=== PATIENT | female | born 1950 | race Caucasian/White ===

== ENCOUNTER 2017-06-21 10:56 | Inpatient (IN) | payer MEDICARE, OTHER ==
[2017-06-21] VITALS (11 sets, daily range): BP systolic 109–142; BP diastolic 67–81; PULSE 69–78; RESP 16–18; TEMP 98–98.5; O2SAT 94–100
[~2017-06-21 10:56] MED LIST: BENZ1TAB PO; CALC500 PO; CLON.5 PO; GEOD80CA PO; LEVA750T PO; LEVO125T3 PO; MELO15 PO; MULT-65 PO; PANT20 PO; PRAV40TA PO; VITA400C36 PO
[2017-06-21] MEDS ORDERED: SODIUM CHLORIDE 0.9% FLUSH 10 ML FLUSH IVF PRN (11:15)
[2017-06-21 11:39] LABS: AUTOMATED NEUTROPHIL # 6.6 TH/MM3 (1.8-7.7); BASOPHIL % 0.2 % (0.0-2.0); EOSINOPHIL # 0.1 TH/MM3 (0-0.4); HEMATOCRIT 37.2 % (35.0-46.0); HEMOGLOBIN 12.4 GM/DL (11.6-15.3); LYMPH % 11.7 % (9.0-44.0); LYMPHOCYTE # 0.9 TH/MM3 (1.0-4.8); MEAN CELL VOLUME 86.1 FL (80.0-100.0); MEAN CORPUSCULAR HEMOGLOBIN 28.9 PG (27.0-34.0); MEAN CORPUSCULAR HGB CONC 33.5 % (32.0-36.0); MEAN PLATELET VOLUME 7.6 FL (7.0-11.0); MONO % 3.2 % (0.0-8.0); MONOCYTE # 0.3 TH/MM3 (0-0.9); NEUT % 83.9 % (16.0-70.0); PLATELET COUNT 212 TH/MM3 (150-450); RED BLOOD COUNT 4.31 MIL/MM3 (4.00-5.30); WHITE BLOOD COUNT 7.9 TH/MM3 (4.0-11.0)
[2017-06-21 11:50] LABS: BICARBONATE 29.9 MEQ/L (21.0-32.0); CALCIUM 8.5 MG/DL (8.5-10.1)
[2017-06-21 11:52] LABS: INTERNATIONAL NORMALIZED RATIO 1.1 RATIO; PROTHROMBIN TIME - PATIENT 10.9 SEC (9.8-11.6)
[2017-06-21 11:54] LABS: CREATININE 0.68 MG/DL (0.50-1.00)
--- NOTE | 2017-06-21 12:02 | PD ---
HPI Chief Complaint: Fall Time Seen by Provider: 11:04 Travel History International Travel<30 days: No Contact w/Intl Traveler<30days: No Traveled to known affect area: No History of Present Illness HPI 67-year-old female states she had a trip and fall and hit the back of her head. After this she had an episode of nonbloody emesis. She states she also hurts to her left upper hip after the fall. She denies any other concurrent complaints. She states the main area that is bothering her is her head. She states she doesn't take blood thinners but she is unsure and is an overall poor historian. History is supplemented by records that came with patient. [facility] Past Medical History Arthritis: No Asthma: No Autoimmune Disease: No Anxiety: Yes Depression: Yes Heart Rhythm Problems: No Cancer: No Cardiovascular Problems: No High Cholesterol: Yes Chest Pain: No Congestive Heart Failure: No COPD: No Cerebrovascular Accident: No Diabetes: No Diminished Hearing: No Endocrine: Yes Gastrointestinal Disorders: Yes GERD: No Genitourinary: Yes Hiatal Hernia: No Hypertension: Yes Immune Disorder: No Kidney Stones: No Musculoskeletal: No Neurologic: No Parkinson's Disease: Yes Reproductive: No Respiratory: No Immunizations Current: Yes Migraines: No Renal Failure: No Schizophrenia: Yes Seizures: No Sleep Apnea: No Thyroid Disease: Yes (HYPO) Ulcer: No : 0 Tubal Ligation: Yes Past Surgical History Abdominal Surgery: Yes (cholecystectomy) AICD: No Arteriovenous Shunt: No Cardiac Surgery: No Cholecystectomy: Yes Gynecologic Surgery: Yes (HYSTERECTOMY & tubal ligation) Hysterectomy: Yes (right side ovaries removed) Insulin Pump: No Joint Replacement: No Pacemaker: No Tonsillectomy: Yes Other Surgery: Yes Social History Alcohol Use: No Tobacco Use: Yes (5 cigarettes daily) Substance Use: No Allergies-Medications (Allergen,Severity, Reaction): Coded Allergies: No Known Allergies (Verified , 04/01/16) Reported Meds & Prescriptions Reported Meds & Active Scripts Active Levaquin (Levofloxacin) 750 Mg Tab 750 Mg PO DAILY 4 Days Reported Klonopin (Clonazepam) 0.5 Mg Tab 0.5 Mg PO TID Protonix (Pantoprazole Sodium) 20 Mg Tab 20 Mg PO DAILY Mobic 15 Mg Tab (Meloxicam) 15 Mg Tab 15 Mg PO DAILY Pravachol 40 Mg Tab 1 Tab PO HS Vitamin E 400 Unit Tab 800 U PO DAILY Geodon (Ziprasidone) 80 Mg Cap 80 Mg PO HS Oscal 500 (Calcium Carbonate) 500 Mg Tab 500 Mg PO BID Klonopin (Clonazepam) 0.5 Mg Tab 0.5 Mg PO DAILY Levothyroxine 125 mcg (Levothyroxine Sodium) 125 Mcg Tab 1 Tab PO DAILY Multi-Vitamin Daily (Multivitamins) Daily Tab 1 Tab PO DAILY Benztropine Mesylate 1 Mg Tab 2 Mg PO BID Review of Systems Except as stated in HPI: all other systems reviewed are Neg Physical Exam Narrative GENERAL: 67-year-old female in no apparent distress SKIN: Focused skin assessment warm/dry. HEAD: Normocephalic. EYES: Pupils equal and round. No scleral icterus. No injection or drainage. ENT: No nasal bleeding or discharge. Mucous membranes pink and moist. NECK: Trachea midline. No JVD. No tenderness in midline over cervical spine with palpation and range of motion CARDIOVASCULAR: Regular rate and rhythm. RESPIRATORY: No accessory muscle use. Clear to auscultation. Breath sounds equal bilaterally. GASTROINTESTINAL: Abdomen soft, non-tender, nondistended. MUSCULOSKELETAL: No obvious deformities. No clubbing. No cyanosis. Pain with palpation of left upper lateral hip, no pain with other joints , neurovascularly intact, no lacerations over, compartments soft. NEUROLOGICAL: Awake. Motor grossly within normal limits. Normal speech. Data Data Last Documented VS Vital Signs Date Time Temp Pulse Resp B/P (MAP) Pulse Ox O2 Delivery O2 Flow Rate FiO2 06/21/17 11:10 94 Room Air 06/21/17 11:00 98.5 73 18 140/81 (100) Orders Orders Basic Metabolic Panel (Bmp) (06/21/17 11:11) Complete Blood Count With Diff (06/21/17 11:11) Prothrombin Time / Inr (Pt) (06/21/17 11:11) Act Partial Throm Time (Ptt) (06/21/17 11:11) Ct Brain W/O Iv Contrast(Rout) (06/21/17 11:11) Iv Access Insert/Monitor (06/21/17 11:11) Ecg Monitoring (06/21/17 11:11) Oximetry (06/21/17 11:11) Sodium Chloride 0.9% Flush (Ns Flush) (06/21/17 11:15) Hip, Uni(Ap&Lat) W Ap Pelvis (06/21/17 ) Admit Order (Ed Use Only) (06/21/17 13:20) Labs Laboratory Tests Test 06/21/17 11:35 White Blood Count 7.9 TH/MM3 Red Blood Count 4.31 MIL/MM3 Hemoglobin 12.4 GM/DL Hematocrit 37.2 % Mean Corpuscular Volume 86.1 FL Mean Corpuscular Hemoglobin 28.9 PG Mean Corpuscular Hemoglobin Concent 33.5 % Red Cell Distribution Width 13.0 % Platelet Count 212 TH/MM3 Mean Platelet Volume 7.6 FL Neutrophils (%) (Auto) 83.9 % Lymphocytes (%) (Auto) 11.7 % Monocytes (%) (Auto) 3.2 % Eosinophils (%) (Auto) 1.0 % Basophils (%) (Auto) 0.2 % Neutrophils # (Auto) 6.6 TH/MM3 Lymphocytes # (Auto) 0.9 TH/MM3 Monocytes # (Auto) 0.3 TH/MM3 Eosinophils # (Auto) 0.1 TH/MM3 Basophils # (Auto) 0.0 TH/MM3 CBC Comment DIFF FINAL Differential Comment Prothrombin Time 10.9 SEC Prothromb Time International Ratio 1.1 RATIO Activated Partial Thromboplast Time 23.7 SEC Blood Urea Nitrogen 18 MG/DL Creatinine 0.68 MG/DL Random Glucose 87 MG/DL Calcium Level 8.5 MG/DL Sodium Level 136 MEQ/L Potassium Level 4.1 MEQ/L Chloride Level 101 MEQ/L Carbon Dioxide Level 29.9 MEQ/L Anion Gap 5 MEQ/L Estimat Glomerular Filtration Rate 86 ML/MIN [facility] Medical Decision Making Medical Screen Exam Complete: Yes Emergency Medical Condition: Yes Medical Record Reviewed: Yes (past history confirmed) Interpretation(s) CBC & BMP Diagram 06/21/17 11:35 Calcium Level 8.5 Last [address] 06/21/17 1111 Signed Impressions: Service Date/Time: Wednesday, June 21, 2017 11:51 - CONCLUSION: 1. High density material, likely representing a small amount of subarachnoid blood products, in the left sylvian fissure. 2. Left posterior lateral scalp soft tissue swelling. No fracture is identified. Jack Camacho MD Hip and Pelvis X-Ray 06/21/17 0000 Signed Impressions: Service Date/Time: Wednesday, June 21, 2017 11:22 - CONCLUSION: 1. Mild degenerative change at the left hip. No acute findings. Dexter Varela MD Differential Diagnosis Fracture, bleed, concussion Narrative Course Will check blood work, trauma imaging and reevaluate CT brain shows possible traumatic subarachnoid hemorrhage. We'll discuss with neurosurgery Patient to be admitted to [facility] ICU for further care. Vitals are stable Physician Communication Physician Communication dr la states to admit to critical care and if they want to consult him to send to [facility], no additional medications or recommendations at this time Dr. Nixon states to admit to Dr. Mojica at the main Diagnosis Primary Impression: Traumatic subarachnoid hemorrhage Qualified Codes: S06.6X0A - Traumatic subarachnoid hemorrhage without loss of consciousness, initial encounter Additional Impression: Fall Qualified Codes: W19.XXXA - Unspecified fall, initial encounter Admitting Information Admitting Physician Requests: Admit Nataliya Valladares MD Jun 21, 2017 12:02
--- NOTE | 2017-06-21 12:09 | RADRPT ---
EXAM DATE/TIME: 06/21/2017 11:22 [facility] COMPARISON: No previous studies available for comparison. INDICATIONS : Left hip pain post fall MEDICAL HISTORY : Parkinsons Disease SURGICAL HISTORY : Cholecystectomy. Hysterectomy.Head trauma ENCOUNTER: Initial ACUITY: 1 day PAIN SCORE: 6/10 LOCATION: Left posterior hip FINDINGS: Examination of the left hip was performed with AP Pelvis. The primary and secondary trabecular patte rn of the femoral neck is intact. The hip joint is of normal width without significant sclerosis or bony hypertrophy. The acetabulum is grossly intact. CONCLUSION: 1. Mild degenerative change at the left hip. No acute findings. Dexter Varela MD on June 21, 2017 at 12:06 Board Certified Radiologist. This report was verified electronically.
--- NOTE | 2017-06-21 12:22 | RADRPT ---
EXAM DATE/TIME: 06/21/2017 11:51 [facility] COMPARISON: CT BRAIN W/O CONTRAST, April 01, 2016, 22:01. INDICATIONS : Trauma. Fall. RADIATION DOSE: 64.49 CTDIvol (mGy) MEDICAL HISTORY : Parkinson's. Hypertension. Schizophrenia. SURGICAL HISTORY : Hysterectomy. Tubal ligation.Cholecystectomy. ENCOUNTER: Initial ACUITY: 1 day PAIN SCALE: 5/10 LOCATION: cranial TECHNIQUE: Multiple contiguous axial images were obtained of the head. Using automated exposure control and adj ustment of the mA and/or kV according to patient size, radiation dose was kept as low as reasonably a chievable to obtain optimal diagnostic quality images. DICOM format image data is available electro nically for review and comparison. FINDINGS: CEREBRUM: There is mild cerebral atrophy. Ventricles are normal in size. Portions of the frontal aspect of the cerebrum are obscured secondary to beam hardening artifact. There is high density material along the left sylvian fissure. No evidence of midline shift, mass lesion, or acute infarction. No extra-axia l fluid collections are seen. POSTERIOR FOSSA: The cerebellum and brainstem are intact. The 4th ventricle is midline. The cerebellopontine angle i s unremarkable. EXTRACRANIAL: There is left posterior lateral scalp soft tissue swelling. SKULL: Right frontal metallic device remains present and causes severe beam hardening artifact. CONCLUSION: 1. High density material, likely representing a small amount of subarachnoid blood products, in the l eft sylvian fissure. 2. Left posterior lateral scalp soft tissue swelling. No fracture is identified. Jack Camacho MD on June 21, 2017 at 12:18 Board Certified Radiologist. This report was verified electronically.
[2017-06-21] MEDS ORDERED: OMEP20TA93 PO (13:43)
[2017-06-21] MEDS ORDERED: POLY99.0 EACH EYE (13:43)
[2017-06-21] MEDS ORDERED: ASPI1TAB57 PO (13:43)
[2017-06-21] MEDS ORDERED: SUPETAB PO (13:43)
[2017-06-21] MEDS ORDERED: LEVO.1 PO (13:43)
[2017-06-21] MEDS ORDERED: MELO15TA20 PO (13:43)
[2017-06-21] MEDS ORDERED: UMEC1AER INH (13:43)
[2017-06-21] MEDS ORDERED: CLON0.5T PO (13:43)
[2017-06-21] MEDS ORDERED: DIVA250ER PO (13:43)
[2017-06-21] MEDS ORDERED: ZIPR20 PO (13:43)
[2017-06-21] MEDS ORDERED: LIPI10TA PO (13:43)
[2017-06-21] MEDS ORDERED: MAGNESIUM SULFATE INJ 2 GM in SODIUM CHLORIDE 0.9% INJ 96 ML IV PRN (14:00)
[2017-06-21] MEDS ORDERED: BISACODYL 10 MG SUPP RECTAL PRN (14:00)
[2017-06-21] MEDS ORDERED: MAGNESIUM SULFATE INJ 4 GM in SODIUM CHLORIDE 0.9% INJ 92 ML IV PRN (14:00)
[2017-06-21] MEDS ORDERED: POTASSIUM CHLORIDE 25 MEQ EFFERVESCENT TAB PO PRN (14:00)
[2017-06-21] MEDS ORDERED: LACTULOSE SYRUP 20 GM/30 ML CUP PO PRN (14:00)
[2017-06-21] MEDS ORDERED: POTASSIUM CHLOR 20 MEQ PREMIX 100 ML IV PRN ×2 (14:00)
[2017-06-21] MEDS ORDERED: POTASSIUM CHLOR 40 MEQ PREMIX 100 ML IV PRN ×2 (14:00)
[2017-06-21] MEDS ORDERED: MAGNESIUM OXIDE 400 MG TAB PO PRN (14:00)
[2017-06-21] MEDS ORDERED: POTASSIUM PHOSPHATE MONOBASIC 500 MG TAB PO PRN (14:00)
[2017-06-21] MEDS ORDERED: SENNOSIDES 8.6 MG TAB PO PRN (14:00)
[2017-06-21] MEDS ORDERED: RESP: ALBUTEROL 2.5 MG/IPRATROPIUM 0.5 MG NEB (PRN) INH (14:00)
[2017-06-21] MEDS ORDERED: SODIUM PHOSPHATE INJ 30 MMOL in SODIUM CHLOR 0.9% 250 ML INJ 240 ML IV PRN (14:00)
[2017-06-21] MEDS ORDERED: POTASSIUM PHOSPHATE MONOBASIC 500 MG TAB PO/TUBE PRN (14:00)
[2017-06-21] MEDS ORDERED: MISCELLANEOUS NURSING INFORMATION XX SCH (14:00)
[2017-06-21] MEDS ORDERED: POTASSIUM PHOSPHATE INJ 30 MMOL in SODIUM CHLOR 0.9% 250 ML INJ 250 ML IV PRN (14:00)
[2017-06-21] MEDS ORDERED: MAGNESIUM HYDROXIDE SUSP 30 ML CUP PO PRN (14:00)
[2017-06-21] MEDS ORDERED: CHLORHEXIDINE GLUCONATE 2 % 1 PACK (2 CLOTHS) TOP PRN (14:00)
[2017-06-21] MEDS ORDERED: ONDANSETRON HCL 4 MG/2 ML VIAL IV PUSH PRN (14:00)
[2017-06-21] MEDS: SODIUM CHLOR 0.9% 1000 ML INJ 1,000 ML IV SCH (15:07)
[2017-06-21] MEDS: RESP: ALBUTEROL 2.5 MG/IPRATROPIUM 0.5 MG NEB (SCH) INH ×2 (15:09→23:56)
--- NOTE | 2017-06-21 16:54 | PD.CONS ---
HPI Consult Requested By Primary Care Physician Unknown History of Present Illness This is a 67-year-old female had a trip and fall and hit the back of her head. No LOC. No seizure activity. No tongue bitting. No incontinence of stool or urine. After tfalling she had an episode of emesis. She states she also hurts to her left upper hip after the fall. She denies any other complaints. She states the main area that is bothering her is her head. She states she doesn't take blood thinners but she is unsure and is an overall poor historian. She is mostly worried about losing her vision because she saw on TV that the vision center of the brain is in the back of the head. Denies focal weakness. Denieas focal sensory lkoss. No loss of vision or hearing loss. No incontinence of sphincters. The CT of the head shows traumatic subarachnoid bleed. Neurosurgical consultation requested Review of Systems Constitutional: COMPLAINS OF: Dizziness, DENIES: Diaphoretic episodes, Fatigue , Fever, Weight gain, Weight loss, Chills, Change in appetite, Night Sweats Endocrine: DENIES: Abnorml menstrual pattern, Heat/cold intolerance, Polydipsia , Polyuria, Polyphagia Eyes: DENIES: Blurred vision, Diplopia, Eye inflammation, Eye pain, Vision loss , Photosensitivity, Double Vision Ears, nose, mouth, throat: DENIES: Tinnitus, Hearing loss, Vertigo, Nasal discharge, Oral lesions, Throat pain, Hoarseness, Ear Pain, Running Nose, Epistaxis, Sinus Pain, Toothache, Odynophagia Respiratory: DENIES: Apneas, Cough, Snoring, Wheezing, Hemoptysis, Sputum production, Shortness of breath Cardiovascular: DENIES: Chest pain, Palpitations, Syncope, Dyspnea on Exertion , PND, Lower Extremity Edema, Orthopnea, Claudication Gastrointestinal: COMPLAINS OF: Nausea, Vomiting, DENIES: Abdominal pain, Black stools, Bloody stools, Constipation, Diarrhea, Difficulty Swallowing, Anorexia Genitourinary: DENIES: Abnormal vaginal bleeding, Dysmenorrhea, Dyspareunia, Sexual dysfunction, Urinary frequency, Urinary incontinence, Urgency, Hematuria , Dysuria, Nocturia, Vaginal discharge Musculoskeletal: DENIES: Joint pain, Muscle aches, Stiffness, Joint Swelling, Back pain, Neck pain Integumentary: DENIES: Abnormal pigmentation, Pruritus, Rash, Nail changes, Breast masses, Breast skin changes, Nipple discharge Hematologic/lymphatic: DENIES: Bruising, Lymphadenopathy Immunologic/allergic: DENIES: Eczema, Urticaria Neurologic: COMPLAINS OF: Headache, DENIES: Abnormal gait, Localized weakness, Paresthesias, Seizures, Speech Problems, Tremor, Poor Balance Psychiatric: DENIES: Anxiety, Confusion, Mood changes, Depression, Hallucinations, Agitation, Suicidal Ideation, Homicidal Ideation, Delusions Past Family Social History Allergies: Coded Allergies: No Known Allergies (Verified Allergy, Unknown, 06/21/17) Past Medical History Paranoid schizophrenia Hypothyroidism Dyslipidemia GERD Past Surgical History None Reported Medications Synthroid (Levothyroxine Sodium) 100 Mcg Tab 100 Mcg PO DAILY Omeprazole 20 Mg Tab 20 Mg PO DAILY Meloxicam 15 Mg Tab 15 Mg PO DAILY Lipitor (Atorvastatin Calcium) 10 Mg Tab 10 Mg PO HS Geodon (Ziprasidone) 20 Mg Cap 20 Mg PO DAILY Depakote ER (Divalproex Sodium) 250 Mg Nahed 250 Mg PO BID Clonazepam 0.5 Mg Tab 0.5 Mg PO BID Super Calcium 600+D 400 (Calcium Carbonate-Vitamin D) 600-400 Mg-Unit Tab 1 Tab PO BID Aspirin 81 (Aspirin) 81 Mg Tabdr 81 Mg PO DAILY Artificial Tears Opth Drops (Polyvinyl Alcohol) 1.4% Soln 1-2 Drop EACH EYE PRN PRN Anoro Ellipta Inh (Umeclidinium/Vilanterol) 62.5-25 Mcg/Act Aero 1 Puff INH DAILY Klonopin (Clonazepam) 0.5 Mg Tab 0.5 Mg PO TID Active Ordered Medications Current Medications Sodium Chloride (NS Flush) 2 ml UNSCH PRN IVF FLUSH AFTER USING IV ACCESS; Start 06/21/17 at 11:15; Stop 06/21/17 at 14:31; Status DC Atorvastatin Calcium (Lipitor) 10 mg HS PO Last administered on 06/21/17at 20:51 ; Start 06/21/17 at 21:00 Clonazepam (KlonoPIN) 0.5 mg TID PO Last administered on 06/21/17at 18:17; Start 06/21/17 at 18:00 Divalproex Sodium (Depakote Er) 250 mg BID PO Last administered on 06/21/17at 20 :50; Start 06/21/17 at 21:00 Levothyroxine Sodium (Synthroid) 100 mcg DAILY@0600 PO ; Start 06/22/17 at 06:00 Ziprasidone (Geodon) 20 mg DAILY PO ; Start 06/22/17 at 09:00 Sodium Chloride 1,000 ml @ 84 mls/hr [id number] IV Last administered on at 01:30; Start 06/21/17 at 13:56 Acetaminophen (Tylenol) 650 mg Q6H PRN PO PAIN 1-5 AND/OR FEVER >101F Last administered on 06/22/17at 00:00; Start 06/21/17 at 14:00 Morphine Sulfate (Morphine Inj) 2 mg Q2H PRN IV PUSH PAIN SCALE 6 TO 10 Last administered on 06/22/17at 03:08; Start 06/21/17 at 14:00 Famotidine (Pepcid) 20 mg Q12HR PO Last administered on 06/21/17at 20:51; Start 06/21/17 at 21:00 Ondansetron HCl (Zofran Inj) 4 mg Q6H PRN IV PUSH NAUSEA OR VOMITING; Start at 14:00 Albuterol/ Ipratropium (Duoneb Neb) 1 ampule Q6HR NEB INH Last administered on 06/21/17at 23:56; Start 06/21/17 at 16:00 Albuterol/ Ipratropium (Duoneb Neb) 1 ampule Q2HR NEB PRN INH WHEEZING; Start 06/21/17 at 14:00 Miscellaneous Information 1 [id number] Last administered on 06/21/17at 20:52; Start 06/21/17 at 14:00 Chlorhexidine Gluconate (Chlorhexidine 2% Cloth) 3 pack Taper DAILY@04 TOP ; Start 06/22/17 at 04:00; Stop 06/18/18 at 03:59 Chlorhexidine Gluconate (Chlorhexidine 2% Cloth) 3 pack UNSCH PRN TOP HYGIENIC CARE; Start 06/21/17 at 14:00 Senna/Docusate Sodium (Pat-Colace) 1 tab BID PO ; Start 06/21/17 at 21:00 Magnesium Hydroxide (Milk Of Magnesia Liq) 30 ml Q12H PRN PO Mild constipation ; Start 06/21/17 at 14:00 Sennosides (Senokot) 17.2 mg Q12H PRN PO Moderate constipation; Start 06/21/17 at 14:00 Bisacodyl (Dulcolax Supp) 10 mg DAILY PRN RECTAL SEVERE CONSITIPATION; Start at 14:00 Lactulose (Lactulose Liq) 30 ml DAILY PRN PO SEVERE CONSITIPATION; Start at 14:00 Potassium Chloride 100 ml @ 50 mls/hr Q2H PRN IV For Potassium 2.8 - 3.2 mEq/L ; Start 06/21/17 at 14:00 Potassium Chloride 100 ml @ 50 mls/hr Q2H PRN IV For Potassium 2.8 - 3.2 mEq/L ; Start 06/21/17 at 14:00 Potassium Bicarb/ Potassium Chloride (K-Lyte Cl Eff) 50 meq UNSCH PRN PO For Potassium 3.3 - 3.5 mEq/L; Start 06/21/17 at 14:00 Potassium Chloride 100 ml @ 25 mls/hr UNSCH PRN IV For Potassium 3.3 - 3.5 mEq /L; Start 06/21/17 at 14:00 Potassium Chloride 100 ml @ 50 mls/hr Q2H PRN IV For Potassium 3.3 - 3.5 mEq/L ; Start 06/21/17 at 14:00 Magnesium Sulfate 4 gm/Sodium Chloride 100 ml @ 50 mls/hr UNSCH PRN IV For Magnesium 0.9 - 1.1 mg/dL; Start 06/21/17 at 14:00 Magnesium Oxide (Mag-Ox) 800 mg UNSCH PRN PO For Magnesium 1.2 - 1.6 mg/dL; Start 06/21/17 at 14:00 Magnesium Sulfate 2 gm/Sodium Chloride 100 ml @ 50 mls/hr UNSCH PRN IV For Magnesium 1.2 - 1.6 mg/dL; Start 06/21/17 at 14:00 Potassium Phosphate (K-Phos) 2,000 mg Q4H PRN PO For Phosphorus < 2.5 mg/dL; Start 06/21/17 at 14:00 Sodium Phosphate 30 mmol/Sodium Chloride 250 ml @ 42 mls/hr UNSCH PRN IV For Phosphorus < 2.5 mg/dL; Start 06/21/17 at 14:00 Potassium Phosphate (K-Phos) 2,000 mg UNSCH PRN PO/TUBE SEE LABEL COMMENTS; Start 06/21/17 at 14:00 Potassium Phosphate 30 mmol/ Sodium Chloride 260 ml @ 42 mls/hr UNSCH PRN IV SEE LABEL COMMENTS; Start 06/21/17 at 14:00 Clonazepam (KlonoPIN) 0.5 mg BID PO ; Start 06/22/17 at 09:00 Pantoprazole Sodium (Protonix) 20 mg DAILY PO ; Start 06/22/17 at 09:00 Family History Her family history was reviewed and was non contributory to her fall abd tis admission Social History Denies tobbacco, alcohol or illicit drug abuse Physical Exam Vital Signs Vital Signs Date Time Temp Pulse Resp B/P (MAP) Pulse Ox O2 Delivery O2 Flow Rate FiO2 06/21/17 15:10 72 16 109/76 (87) 97 Nasal Cannula 2.00 06/21/17 15:04 100 Nasal Cannula 1.00 06/21/17 15:03 98 Nasal Cannula 2.00 06/21/17 13:59 73 17 114/81 (92) 95 Room Air 06/21/17 13:00 78 18 117/77 (90) 94 Room Air 06/21/17 11:10 94 Room Air 06/21/17 11:10 95 Room Air 06/21/17 11:00 98.5 73 18 140/81 (100) 94 Physical Exam The patient is alert and oriented to person, place, and time with normal speech. Cranial Nerves: Pupils are round, reactive to light. Extraocular movements are intact without ptosis. Hearing is normal bilaterally. Voice is normal. Tongue protrudes midline and moves symmetrically. Reflexes: Biceps, patellar, and Achilles are 2/4 bilaterally. No clonus. Sensation: Sensation is intact bilaterally to pain and light touch. Two-point discrimination is intact. Motor: Good muscle tone. Strength is 5/5 bilaterally. Cerebellar: [id number] and [id number] test normal bilaterally. SKIN: Warm and dry. HEAD: Normocephalic. EYES: No scleral icterus. No injection or drainage. NECK: Supple, trachea midline. No JVD or lymphadenopathy. CARDIOVASCULAR: Regular rate and rhythm without murmurs, gallops, or rubs. RESPIRATORY: Breath sounds equal bilaterally. No accessory muscle use. GASTROINTESTINAL: Abdomen soft, non-tender, nondistended. MUSCULOSKELETAL: No cyanosis, or edema. BACK: Nontender without obvious deformity. NEURO EXAM: GCS: 15 Laboratory Laboratory Tests Test 06/21/17 11:35 White Blood Count 7.9 Red Blood Count 4.31 Hemoglobin 12.4 Hematocrit 37.2 Mean Corpuscular Volume 86.1 Mean Corpuscular Hemoglobin 28.9 Mean Corpuscular Hemoglobin Concent 33.5 Red Cell Distribution Width 13.0 Platelet Count 212 Mean Platelet Volume 7.6 Neutrophils (%) (Auto) 83.9 Lymphocytes (%) (Auto) 11.7 Monocytes (%) (Auto) 3.2 Eosinophils (%) (Auto) 1.0 Basophils (%) (Auto) 0.2 Neutrophils # (Auto) 6.6 Lymphocytes # (Auto) 0.9 Monocytes # (Auto) 0.3 Eosinophils # (Auto) 0.1 Basophils # (Auto) 0.0 CBC Comment DIFF FINAL Differential Comment Prothrombin Time 10.9 Prothromb Time International Ratio 1.1 Activated Partial Thromboplast Time 23.7 Blood Urea Nitrogen 18 Creatinine 0.68 Random Glucose 87 Calcium Level 8.5 Sodium Level 136 Potassium Level 4.1 Chloride Level 101 Carbon Dioxide Level 29.9 Anion Gap 5 Estimat Glomerular Filtration Rate 86 Result Diagram: 06/21/17 1135 06/21/17 1135 Imaging Last [address] 06/21/17 1111 Signed Impressions: Service Date/Time: Wednesday, June 21, 2017 11:51 - CONCLUSION: 1. High density material, likely representing a small amount of subarachnoid blood products, in the left sylvian fissure. 2. Left posterior lateral scalp soft tissue swelling. No fracture is identified. Jack Camacho MD Hip and Pelvis X-Ray 06/21/17 0000 Signed Impressions: Service Date/Time: Wednesday, June 21, 2017 11:22 - CONCLUSION: 1. Mild degenerative change at the left hip. No acute findings. Dexter Varela MD Attending Statement Chaudhary reviewed her clinical and radiological findings Head CT 06/21/17 1111 Signed mpressions: Service Date/Time: Wednesday, June 21, 2017 11:51 - CONCLUSION: 1. High density material, likely representing a small amount of subarachnoid blood products, in the left sylvian fissure. 2. Left posterior lateral scalp soft tissue swelling. No fracture is identified. Jack Camacho MD Hip and Pelvis X-Ray 06/21/17 0000 Signed Impressions: Service Date/Time: Wednesday, June 21, 2017 11:22 - CONCLUSION: 1. Mild degenerative change at the left hip. No acute findings. Dexter Varela MD neuro checks in a serial fashion. A follow-up CT of the head will be obtained in 24 hours. Non surgical management of TBI Pulmonary.aggressive pulmonary toilette, nasotracheal suction, and breathing treatments with nebulizers. Nutrition. Oral diet Renal. monitor closely urine output, BUN and creatinine Endocrine. Monitor serial Acu checks and SSI as needed in detail ID monitor for signs of infection Protonix for stress ulcer prophylaxis Ludwig hose and SCD's for DVT prophylaxis Preet Day MD Jun 21, 2017 16:54
[2017-06-21] MEDS: ACETAMINOPHEN 325 MG TAB PO PRN (17:22)
[2017-06-21] MEDS: clonazePAM 0.5 MG TAB PO SCH (18:17)
[2017-06-21] MEDS: DIVALPROEX SODIUM E.R. 250 MG TAB PO SCH (20:50)
[2017-06-21] MEDS: DOCUSATE SODIUM 50 MG/SENNA 8.6 MG TAB PO SCH (20:51)
[2017-06-21] MEDS: ATORVASTATIN 10 MG TAB PO SCH (20:51)
[2017-06-21] MEDS: FAMOTIDINE 20 MG TAB PO SCH (20:51)
[2017-06-21] MEDS: MORPHINE SULFATE 4 MG/ML INJ IV PUSH PRN (20:53)
--- NOTE | 2017-06-21 22:12 | HHI.HP ---
HPI Service Critical Care Medicine Primary Care Physician Unknown Admission Diagnosis traumatic subarachnoid hemorrhage Diagnosis: Travel History International Travel<30 Days: No Contact w/Intl Traveler <30 Da: No Traveled to Known Affected Are: No History of Present Illness 67-year-old female had a trip and fall and hit the back of her head. After this she had an episode of nonbloody emesis. She states she also hurts to her left upper hip after the fall. She denies any other complaints. She states the main area that is bothering her is her head. She states she doesn't take blood thinners but she is unsure and is an overall poor historian. She is mostly worried about losing her vision because she saw on TV that the vision center of the brain is in the back of the head. The CT of the head shows small tiny traumatic subarachnoid bleed. Review of Systems Constitutional: COMPLAINS OF: Dizziness, DENIES: Diaphoretic episodes, Fatigue , Fever, Weight gain, Weight loss, Chills, Change in appetite, Night Sweats Endocrine: DENIES: Abnorml menstrual pattern, Heat/cold intolerance, Polydipsia , Polyuria, Polyphagia Eyes: DENIES: Blurred vision, Diplopia, Eye inflammation, Eye pain, Vision loss , Photosensitivity, Double Vision Ears, nose, mouth, throat: DENIES: Tinnitus, Hearing loss, Vertigo, Nasal discharge, Oral lesions, Throat pain, Hoarseness, Ear Pain, Running Nose, Epistaxis, Sinus Pain, Toothache, Odynophagia Respiratory: DENIES: Apneas, Cough, Snoring, Wheezing, Hemoptysis, Sputum production, Shortness of breath Cardiovascular: DENIES: Chest pain, Palpitations, Syncope, Dyspnea on Exertion , PND, Lower Extremity Edema, Orthopnea, Claudication Gastrointestinal: COMPLAINS OF: Nausea, Vomiting, DENIES: Abdominal pain, Black stools, Bloody stools, Constipation, Diarrhea, Difficulty Swallowing, Anorexia Genitourinary: DENIES: Abnormal vaginal bleeding, Dysmenorrhea, Dyspareunia, Sexual dysfunction, Urinary frequency, Urinary incontinence, Urgency, Hematuria , Dysuria, Nocturia, Vaginal discharge Musculoskeletal: DENIES: Joint pain, Muscle aches, Stiffness, Joint Swelling, Back pain, Neck pain Integumentary: DENIES: Abnormal pigmentation, Pruritus, Rash, Nail changes, Breast masses, Breast skin changes, Nipple discharge Hematologic/lymphatic: DENIES: Bruising, Lymphadenopathy Immunologic/allergic: DENIES: Eczema, Urticaria Neurologic: COMPLAINS OF: Headache, DENIES: Abnormal gait, Localized weakness, Paresthesias, Seizures, Speech Problems, Tremor, Poor Balance Psychiatric: DENIES: Anxiety, Confusion, Mood changes, Depression, Hallucinations, Agitation, Suicidal Ideation, Homicidal Ideation, Delusions Past Family Social History Allergies: Coded Allergies: No Known Allergies (Verified Allergy, Unknown, 06/21/17) Past Medical History Paranoid schizophrenia Hypothyroidism Dyslipidemia GERD Past Surgical History None Reported Medications Reported Meds & Active Scripts Active Reported Synthroid (Levothyroxine Sodium) 100 Mcg Tab 100 Mcg PO DAILY Omeprazole 20 Mg Tab 20 Mg PO DAILY Meloxicam 15 Mg Tab 15 Mg PO DAILY Lipitor (Atorvastatin Calcium) 10 Mg Tab 10 Mg PO HS Geodon (Ziprasidone) 20 Mg Cap 20 Mg PO DAILY Depakote ER (Divalproex Sodium) 250 Mg Nahed 250 Mg PO BID Clonazepam 0.5 Mg Tab 0.5 Mg PO BID Super Calcium 600+D 400 (Calcium Carbonate-Vitamin D) 600-400 Mg-Unit Tab 1 Tab PO BID Aspirin 81 (Aspirin) 81 Mg Tabdr 81 Mg PO DAILY Artificial Tears Opth Drops (Polyvinyl Alcohol) 1.4% Soln 1-2 Drop EACH EYE PRN PRN Anoro Ellipta Inh (Umeclidinium/Vilanterol) 62.5-25 Mcg/Act Aero 1 Puff INH DAILY Klonopin (Clonazepam) 0.5 Mg Tab 0.5 Mg PO TID Active Ordered Medications Current Medications Medications (Trade) Dose Ordered Sig/May Route PRN Reason Start Time Stop Time Status Last Admin Dose Admin Atorvastatin Calcium (Lipitor) 10 mg HS PO 06/21/17 21:00 06/21/17 20:51 Clonazepam (KlonoPIN) 0.5 mg TID PO 06/21/17 18:00 06/21/17 18:17 Divalproex Sodium (Depakote Er) 250 mg BID PO 06/21/17 21:00 06/21/17 20:50 Levothyroxine Sodium (Synthroid) 100 mcg DAILY@0600 PO 06/22/17 06:00 Ziprasidone (Geodon) 20 mg DAILY PO 06/22/17 09:00 Sodium Chloride 1,000 ml @ 84 mls/hr [id number] IV 06/21/17 13:56 06/21/17 15:07 Acetaminophen (Tylenol) 650 mg Q6H PRN PO PAIN 1-5 AND/OR FEVER >101F 06/21/17 14:00 06/21/17 17:22 Morphine Sulfate (Morphine Inj) 2 mg Q2H PRN IV PUSH PAIN SCALE 6 TO 10 06/21/17 14:00 06/21/17 20:53 Famotidine (Pepcid) 20 mg Q12HR PO 06/21/17 21:00 06/21/17 20:51 Ondansetron HCl (Zofran Inj) 4 mg Q6H PRN IV PUSH NAUSEA OR VOMITING 06/21/17 14:00 Albuterol/ Ipratropium (Duoneb Neb) 1 ampule Q6HR NEB INH 06/21/17 16:00 Albuterol/ Ipratropium (Duoneb Neb) 1 ampule Q2HR NEB PRN INH WHEEZING 06/21/17 14:00 Miscellaneous Information 1 Q361D XX 06/21/17 14:00 06/21/17 20:52 Chlorhexidine Gluconate (Chlorhexidine 2% Cloth) 3 pack Taper DAILY@04 TOP 06/22/17 04:00 06/18/18 03:59 Chlorhexidine Gluconate (Chlorhexidine 2% Cloth) 3 pack UNSCH PRN TOP HYGIENIC CARE 06/21/17 14:00 Senna/Docusate Sodium (Pat-Colace) 1 tab BID PO 06/21/17 21:00 Magnesium Hydroxide (Milk Of Magnesia Liq) 30 ml Q12H PRN PO Mild constipation 06/21/17 14:00 Sennosides (Senokot) 17.2 mg Q12H PRN PO Moderate constipation 06/21/17 14:00 Bisacodyl (Dulcolax Supp) 10 mg DAILY PRN RECTAL SEVERE CONSITIPATION 06/21/17 14:00 Lactulose (Lactulose Liq) 30 ml DAILY PRN PO SEVERE CONSITIPATION 06/21/17 14:00 Potassium Chloride 100 ml @ 50 mls/hr Q2H PRN IV For Potassium 2.8 - 3.2 mEq/L 06/21/17 14:00 Potassium Chloride 100 ml @ 50 mls/hr Q2H PRN IV For Potassium 2.8 - 3.2 mEq/L 06/21/17 14:00 Potassium Bicarb/ Potassium Chloride (K-Lyte Cl Eff) 50 meq UNSCH PRN PO For Potassium 3.3 - 3.5 mEq/L 06/21/17 14:00 Potassium Chloride 100 ml @ 25 mls/hr UNSCH PRN IV For Potassium 3.3 - 3.5 mEq/L 06/21/17 14:00 Potassium Chloride 100 ml @ 50 mls/hr Q2H PRN IV For Potassium 3.3 - 3.5 mEq/L 06/21/17 14:00 Magnesium Sulfate 4 gm/Sodium Chloride 100 ml @ 50 mls/hr UNSCH PRN IV For Magnesium 0.9 - 1.1 mg/dL 06/21/17 14:00 Magnesium Oxide (Mag-Ox) 800 mg UNSCH PRN PO For Magnesium 1.2 - 1.6 mg/dL 06/21/17 14:00 Magnesium Sulfate 2 gm/Sodium Chloride 100 ml @ 50 mls/hr UNSCH PRN IV For Magnesium 1.2 - 1.6 mg/dL 06/21/17 14:00 Potassium Phosphate (K-Phos) 2,000 mg Q4H PRN PO For Phosphorus < 2.5 mg/dL 06/21/17 14:00 Sodium Phosphate 30 mmol/Sodium Chloride 250 ml @ 42 mls/hr UNSCH PRN IV For Phosphorus < 2.5 mg/dL 06/21/17 14:00 Potassium Phosphate (K-Phos) 2,000 mg UNSCH PRN PO/TUBE SEE LABEL COMMENTS 06/21/17 14:00 Potassium Phosphate 30 mmol/ Sodium Chloride 260 ml @ 42 mls/hr UNSCH PRN IV SEE LABEL COMMENTS 06/21/17 14:00 Family History No family history significant of cancer Social History Denies alcohol or illicit drug abuse Physical Exam Vital Signs Vital Signs Date Time Temp Pulse Resp B/P (MAP) Pulse Ox O2 Delivery O2 Flow Rate FiO2 06/21/17 21:45 15 06/21/17 20:00 98.0 74 16 142/70 (94) 97 06/21/17 20:00 74 06/21/17 18:30 76 17 123/69 (87) 98 Nasal Cannula 2.00 06/21/17 18:25 18 3/16/18 17:00 75 16 112/67 (82) 97 Nasal Cannula 2.00 06/21/17 15:10 72 16 109/76 (87) 97 Nasal Cannula 2.00 06/21/17 15:04 100 Nasal Cannula 1.00 06/21/17 15:03 98 Nasal Cannula 2.00 06/21/17 13:59 73 17 114/81 (92) 95 Room Air 06/21/17 13:00 78 18 117/77 (90) 94 Room Air 06/21/17 11:10 94 Room Air 06/21/17 11:10 95 Room Air 06/21/17 11:00 98.5 73 18 140/81 (100) 94 Physical Exam GENERAL: Well-nourished, well-developed patient. SKIN: Warm and dry. HEAD: Normocephalic. EYES: No scleral icterus. No injection or drainage. NECK: Supple, trachea midline. No JVD or lymphadenopathy. CARDIOVASCULAR: Regular rate and rhythm without murmurs, gallops, or rubs. RESPIRATORY: Breath sounds equal bilaterally. No accessory muscle use. GASTROINTESTINAL: Abdomen soft, non-tender, nondistended. MUSCULOSKELETAL: No cyanosis, or edema. BACK: Nontender without obvious deformity. NEURO EXAM: GCS: 15 Mental Status: The patient is alert and oriented to person, place, and time with normal speech. Cranial Nerves: Visual acuity intact bilaterally. Visual hilton normal in all quadrants. Pupils are round, reactive to light. Extraocular movements are intact without ptosis. Hearing is normal bilaterally. Voice is normal. Tongue protrudes midline and moves symmetrically. Reflexes: Biceps, patellar, and Achilles are 2/4 bilaterally. No clonus. Sensation: Sensation is intact bilaterally to pain and light touch. Two-point discrimination is intact. Motor: Good muscle tone. Strength is 5/5 bilaterally. Cerebellar: [id number] and [id number] test normal bilaterally. Laboratory Laboratory Tests Test 06/21/17 11:35 06/21/17 20:36 White Blood Count 7.9 Red Blood Count 4.31 Hemoglobin 12.4 Hematocrit 37.2 Mean Corpuscular Volume 86.1 Mean Corpuscular Hemoglobin 28.9 Mean Corpuscular Hemoglobin Concent 33.5 Red Cell Distribution Width 13.0 Platelet Count 212 Mean Platelet Volume 7.6 Neutrophils (%) (Auto) 83.9 Lymphocytes (%) (Auto) 11.7 Monocytes (%) (Auto) 3.2 Eosinophils (%) (Auto) 1.0 Basophils (%) (Auto) 0.2 Neutrophils # (Auto) 6.6 Lymphocytes # (Auto) 0.9 Monocytes # (Auto) 0.3 Eosinophils # (Auto) 0.1 Basophils # (Auto) 0.0 CBC Comment DIFF FINAL Differential Comment Prothrombin Time 10.9 Prothromb Time International Ratio 1.1 Activated Partial Thromboplast Time 23.7 Blood Urea Nitrogen 18 Creatinine 0.68 Random Glucose 87 Calcium Level 8.5 Sodium Level 136 Potassium Level 4.1 Chloride Level 101 Carbon Dioxide Level 29.9 Anion Gap 5 Estimat Glomerular Filtration Rate 86 Result Diagram: 06/21/17 1135 06/21/17 1135 Imaging Last [address] 06/21/17 1111 Signed Impressions: Service Date/Time: Wednesday, June 21, 2017 11:51 - CONCLUSION: 1. High density material, likely representing a small amount of subarachnoid blood products, in the left sylvian fissure. 2. Left posterior lateral scalp soft tissue swelling. No fracture is identified. Jack Camacho MD Hip and Pelvis X-Ray 06/21/17 0000 Signed Impressions: Service Date/Time: Wednesday, June 21, 2017 11:22 - CONCLUSION: 1. Mild degenerative change at the left hip. No acute findings. Dexter Varela MD Caprini VTE Risk Assessment Caprini VTE Risk Assessment: Mod/High Risk (score >= 2) VTE Pharm Contraindication: Hemorrhage Caprini Risk Assessment Model Point Value = 1 Point Value = 2 Point Value = 3 Point Value = 5 Age 41-60 Minor surgery BMI > 25 kg/m2 Swollen legs Varicose veins or History of unexplained or recurrent spontaneous Oral contraceptives or hormone replacement Sepsis (< 1 month) Serious lung disease, including pneumonia (< 1 month) Abnormal pulmonary function Acute myocardial infarction Congestive heart failure (< 1 month) History of inflammatory bowel disease Medical patient at bed rest Age 61-74 Arthroscopic surgery Major open surgery (> 45 min) Laparoscopic surgery (> 45 min) Malignancy Confined to bed (> 72 hours) Immobilizing plaster cast Central venous access Age >= 75 History of VTE Family history of VTE Factor V Leiden Prothrombin [id number] Lupus anticoagulant Anticardiolipin antibodies Elevated serum homocysteine Heparin-induced thrombocytopenia Other congenital or acquired thrombophilia Stroke (< 1 month) Elective arthroplasty Hip, pelvis, or leg fracture Acute spinal cord injury (< 1 month) Prophylaxis Regimen Total Risk Factor Score Risk Level Prophylaxis Regimen 0-1 Low Early ambulation 2 Moderate Order ONE of the following: *Sequential Compression Device (SCD) *Heparin 5000 units SQ BID 3-4 Higher Order ONE of the following medications: *Heparin 5000 units SQ TID *Enoxaparin/Lovenox 40 mg SQ daily (WT < 150 kg, CrCl > 30 mL/min) *Enoxaparin/Lovenox 30 mg SQ daily (WT < 150 kg, CrCl > 10-29 mL/min) *Enoxaparin/Lovenox 30 mg SQ BID (WT < 150 kg, CrCl > 30 mL/min) AND/OR *Sequential Compression Device (SCD) 5 or more Highest Order ONE of the following medications: *Heparin 5000 units SQ TID (Preferred with Epidurals) *Enoxaparin/Lovenox 40 mg SQ daily (WT < 150 kg, CrCl > 30 mL/min) *Enoxaparin/Lovenox 30 mg SQ daily (WT < 150 kg, CrCl > 10-29 mL/min) *Enoxaparin/Lovenox 30 mg SQ BID (WT < 150 kg, CrCl > 30 mL/min) AND *Sequential Compression Device (SCD) Assessment and Plan Assessment and Plan Traumatic subarachnoid bleed - Repeat CT head in 24 hours - Neurosurgical consultations - Neuro checks per unit protocol - Supportive care Paranoid schizophrenia - Continue home meds Dyslipidemia - Lipitor GERD - Omeprazole Hypothyroidism - Synthroid DVT GI prophylaxis - Teds SCDs - Pharmacological DVT prophylaxis due to subarachnoid bleed - Omeprazole Critical Care: The total critical care time was 35 minutes. Time to perform other separately billable procedures was not included in the critical care time. Lang Cornejo MD Jun 21, 2017 22:12
[2017-06-22] VITALS (12 sets, daily range): BP systolic 96–146; BP diastolic 57–69; PULSE 63–93; RESP 16–21; TEMP 98.1–99.2; O2SAT 93–100
[2017-06-22] MEDS: SODIUM CHLOR 0.9% 1000 ML INJ 1,000 ML IV SCH ×2 (01:30→12:55)
[2017-06-22] MEDS: MORPHINE SULFATE 4 MG/ML INJ IV PUSH PRN (03:08)
[2017-06-22] MEDS: RESP: ALBUTEROL 2.5 MG/IPRATROPIUM 0.5 MG NEB (SCH) INH ×4 (03:48→20:55)
[2017-06-22] MEDS: CHLORHEXIDINE GLUCONATE 2 % 1 PACK (2 CLOTHS) TOP SCH (04:00)
[2017-06-22 04:13] LABS: AUTOMATED NEUTROPHIL # 3.9 TH/MM3 (1.8-7.7); BASOPHIL % 0.4 % (0.0-2.0); EOSINOPHIL # 0.1 TH/MM3 (0-0.4); EOSINOPHIL % 1.7 % (0.0-4.0); HEMATOCRIT 32.8 % (35.0-46.0); HEMOGLOBIN 11.5 GM/DL (11.6-15.3); LYMPH % 25.9 % (9.0-44.0); LYMPHOCYTE # 1.5 TH/MM3 (1.0-4.8); MEAN CELL VOLUME 86.1 FL (80.0-100.0); MEAN CORPUSCULAR HEMOGLOBIN 30.1 PG (27.0-34.0); MEAN PLATELET VOLUME 7.4 FL (7.0-11.0); MONO % 6.5 % (0.0-8.0); MONOCYTE # 0.4 TH/MM3 (0-0.9); NEUT % 65.5 % (16.0-70.0); PLATELET COUNT 179 TH/MM3 (150-450); RED BLOOD COUNT 3.81 MIL/MM3 (4.00-5.30); RED CELL DISTRIBUTION WIDTH 13.7 % (11.6-17.2); WHITE BLOOD COUNT 5.9 TH/MM3 (4.0-11.0)
[2017-06-22 04:37] LABS: ALBUMIN 3.2 GM/DL (3.4-5.0); AST (GOT) 31 U/L (15-37); BICARBONATE 26.2 MEQ/L (21.0-32.0); BLOOD UREA NITROGEN 11 MG/DL (7-18); CALCIUM 8.4 MG/DL (8.5-10.1); CHLORIDE 105 MEQ/L (98-107); CREATININE 0.61 MG/DL (0.50-1.00); GLOMERULAR FILTRATION RATE 97 ML/MIN (>89); GLUCOSE,RANDOM 85 MG/DL (74-106); MAGNESIUM 2.1 MG/DL (1.5-2.5); SODIUM (NA) 140 MEQ/L (136-145)
[2017-06-22 04:39] LABS: ALT (GPT) 37 U/L (10-53); PHOSPHORUS 3.6 MG/DL (2.5-4.9)
[2017-06-22 04:41] LABS: ALKALINE PHOSPHATASE 65 U/L (45-117); TOTAL BILIRUBIN ADULT 0.6 MG/DL (0.2-1.0); TOTAL PROTEIN 6.3 GM/DL (6.4-8.2)
[2017-06-22] MEDS: LEVOTHYROXINE SODIUM 100 MCG TAB PO SCH (05:24)
[2017-06-22] MEDS: UMECLIDINIUM 62.5 MCG/VILANTEROL 25 MCG INHALER INH SCH (09:00)
[2017-06-22] MEDS: clonazePAM 0.5 MG TAB PO SCH ×3 (09:00→21:27)
[2017-06-22] MEDS: FAMOTIDINE 20 MG TAB PO SCH ×2 (09:25→21:27)
[2017-06-22] MEDS: DOCUSATE SODIUM 50 MG/SENNA 8.6 MG TAB PO SCH ×2 (09:25→21:27)
[2017-06-22] MEDS: ZIPRASIDONE HCL 20 MG CAP PO SCH (09:25)
[2017-06-22] MEDS: DIVALPROEX SODIUM E.R. 250 MG TAB PO SCH ×2 (09:25→21:29)
[2017-06-22] MEDS: PANTOPRAZOLE SOD 20 MG DELAYED RELEASE TAB PO SCH (09:25)
--- NOTE | 2017-06-22 12:44 | HHI.NSPN ---
Note Status Status: Progress Note Interval History Diagnosis ICH Interval History This is a 67-year-old female had a trip and fall and hit the back of her head. No LOC. No seizure activity. No tongue bitting. No incontinence of stool or urine. After tfalling she had an episode of emesis. She states she also hurts to her left upper hip after the fall. She denies any other complaints. She states the main area that is bothering her is her head. She states she doesn't take blood thinners but she is unsure and is an overall poor historian. She is mostly worried about losing her vision because she saw on TV that the vision center of the brain is in the back of the head. Denies focal weakness. Denieas focal sensory lkoss. No loss of vision or hearing loss. No incontinence of sphincters. The CT of the head shows traumatic subarachnoid bleed. Neurosurgical consultation requested 06/22. Alert, and awake. Speech fluent. no focal deficits Labs, Micro, & Vital Signs Results Date Time Temp Pulse Resp B/P (MAP) Pulse Ox O2 Delivery O2 Flow Rate FiO2 06/22/17 10:41 97 21 06/22/17 10:00 84 06/22/17 08:00 70 06/22/17 08:00 98.3 70 16 98/58 (71) 97 06/22/17 07:00 Room Air 97 06/22/17 06:13 71 06/22/17 04:36 70 16 96/57 (70) 93 06/22/17 04:36 70 06/22/17 02:00 70 06/22/17 00:38 98.1 78 20 114/66 (82) 95 06/22/17 00:37 76 06/21/17 22:00 70 06/21/17 21:45 15 06/21/17 20:00 98.0 74 16 142/70 (94) 97 06/21/17 20:00 69 06/21/17 20:00 74 06/21/17 18:30 76 17 123/69 (87) 98 Nasal Cannula 2.00 3/16/18 18:25 18 06/21/17 17:00 75 16 112/67 (82) 97 Nasal Cannula 2.00 06/21/17 15:10 72 16 109/76 (87) 97 Nasal Cannula 2.00 06/21/17 15:04 100 Nasal Cannula 1.00 06/21/17 15:03 98 Nasal Cannula 2.00 06/21/17 13:59 73 17 114/81 (92) 95 Room Air 06/21/17 13:00 78 18 117/77 (90) 94 Room Air Constitutional Vital Signs Date Time Temp Pulse Resp B/P (MAP) Pulse Ox O2 Delivery O2 Flow Rate FiO2 06/22/17 10:41 97 21 06/22/17 10:00 84 06/22/17 08:00 70 06/22/17 08:00 98.3 70 16 98/58 (71) 97 06/22/17 07:00 Room Air 97 06/22/17 06:13 71 06/22/17 04:36 70 16 96/57 (70) 93 06/22/17 04:36 70 06/22/17 02:00 70 06/22/17 00:38 98.1 78 20 114/66 (82) 95 06/22/17 00:37 76 06/21/17 22:00 70 06/21/17 21:45 15 06/21/17 20:00 98.0 74 16 142/70 (94) 97 06/21/17 20:00 69 06/21/17 20:00 74 06/21/17 18:30 76 17 123/69 (87) 98 Nasal Cannula 2.00 06/21/17 18:25 18 06/21/17 17:00 75 16 112/67 (82) 97 Nasal Cannula 2.00 06/21/17 15:10 72 16 109/76 (87) 97 Nasal Cannula 2.00 06/21/17 15:04 100 Nasal Cannula 1.00 06/21/17 15:03 98 Nasal Cannula 2.00 06/21/17 13:59 73 17 114/81 (92) 95 Room Air 06/21/17 13:00 78 18 117/77 (90) 94 Room Air Physical Exam ms Tay is alert and oriented to person, place, and time with normal speech. Cranial Nerves: Pupils are round, reactive to light. Extraocular movements are intact without ptosis. Hearing is normal bilaterally. Voice is normal. Tongue protrudes midline and moves symmetrically. Reflexes: Biceps, patellar, and Achilles are 2/4 bilaterally. No clonus. Sensation: Sensation is intact bilaterally to pain and light touch. Two-point discrimination is intact. Motor: Good muscle tone. Strength is 5/5 bilaterally. Cerebellar: Afroeh-bc-xwax and [id number]-[id number] test normal bilaterally. SKIN: Warm and dry. HEAD: Normocephalic. EYES: No scleral icterus. No injection or drainage. NECK: Supple, trachea midline. No JVD or lymphadenopathy. CARDIOVASCULAR: Regular rate and rhythm without murmurs, gallops, or rubs. RESPIRATORY: Breath sounds equal bilaterally. No accessory muscle use. GASTROINTESTINAL: Abdomen soft, non-tender, nondistended. MUSCULOSKELETAL: No cyanosis, or edema. BACK: Nontender without obvious deformity. NEURO EXAM: GCS: 15 Medications Current Medications Current Medications Sodium Chloride (NS Flush) 2 ml UNSCH PRN IVF FLUSH AFTER USING IV ACCESS; Start 06/21/17 at 11:15; Stop 06/21/17 at 14:31; Status DC Atorvastatin Calcium (Lipitor) 10 mg HS PO Last administered on 06/21/17at 20:51 ; Start 06/21/17 at 21:00 Clonazepam (KlonoPIN) 0.5 mg TID PO Last administered on 06/21/17at 18:17; Start 06/21/17 at 18:00; Stop 06/22/17 at 09:29; Status DC Divalproex Sodium (Depakote Er) 250 mg BID PO Last administered on 06/22/17at 09 :25; Start 06/21/17 at 21:00 Levothyroxine Sodium (Synthroid) 100 mcg DAILY@0600 PO Last administered on at 05:24; Start 06/22/17 at 06:00 Ziprasidone (Geodon) 20 mg DAILY PO Last administered on 06/22/17at 09:25; Start 06/22/17 at 09:00 Sodium Chloride 1,000 ml @ 84 mls/hr [id number] IV Last administered on at 01:30; Start 06/21/17 at 13:56 Acetaminophen (Tylenol) 650 mg Q6H PRN PO PAIN 1-5 AND/OR FEVER >101F Last administered on 06/22/17at 00:00; Start 06/21/17 at 14:00 Morphine Sulfate (Morphine Inj) 2 mg Q2H PRN IV PUSH PAIN SCALE 6 TO 10 Last administered on 06/22/17at 03:08; Start 06/21/17 at 14:00 Famotidine (Pepcid) 20 mg Q12HR PO Last administered on 06/22/17at 09:25; Start 06/21/17 at 21:00 Ondansetron HCl (Zofran Inj) 4 mg Q6H PRN IV PUSH NAUSEA OR VOMITING; Start at 14:00 Albuterol/ Ipratropium (Duoneb Neb) 1 ampule Q6HR NEB INH Last administered on 06/22/17at 10:39; Start 06/21/17 at 16:00 Albuterol/ Ipratropium (Duoneb Neb) 1 ampule Q2HR NEB PRN INH WHEEZING; Start 06/21/17 at 14:00 Miscellaneous Information 1 Q361D XX Last administered on 06/21/17at 20:52; Start 06/21/17 at 14:00 Chlorhexidine Gluconate (Chlorhexidine 2% Cloth) 3 pack Taper DAILY@04 TOP ; Start 06/22/17 at 04:00; Stop 06/18/18 at 03:59 Chlorhexidine Gluconate (Chlorhexidine 2% Cloth) 3 pack UNSCH PRN TOP HYGIENIC CARE; Start 06/21/17 at 14:00 Senna/Docusate Sodium (Pat-Colace) 1 tab BID PO Last administered on at 09:25; Start 06/21/17 at 21:00 Magnesium Hydroxide (Milk Of Magnesia Liq) 30 ml Q12H PRN PO Mild constipation ; Start 06/21/17 at 14:00 Sennosides (Senokot) 17.2 mg Q12H PRN PO Moderate constipation; Start 06/21/17 at 14:00 Bisacodyl (Dulcolax Supp) 10 mg DAILY PRN RECTAL SEVERE CONSITIPATION; Start at 14:00 Lactulose (Lactulose Liq) 30 ml DAILY PRN PO SEVERE CONSITIPATION; Start at 14:00 Potassium Chloride 100 ml @ 50 mls/hr Q2H PRN IV For Potassium 2.8 - 3.2 mEq/L ; Start 06/21/17 at 14:00 Potassium Chloride 100 ml @ 50 mls/hr Q2H PRN IV For Potassium 2.8 - 3.2 mEq/L ; Start 06/21/17 at 14:00 Potassium Bicarb/ Potassium Chloride (K-Lyte Cl Eff) 50 meq UNSCH PRN PO For Potassium 3.3 - 3.5 mEq/L Last administered on 06/22/17at 05:24; Start 06/21/17 at 14:00 Potassium Chloride 100 ml @ 25 mls/hr UNSCH PRN IV For Potassium 3.3 - 3.5 mEq /L; Start 06/21/17 at 14:00 Potassium Chloride 100 ml @ 50 mls/hr Q2H PRN IV For Potassium 3.3 - 3.5 mEq/L ; Start 06/21/17 at 14:00 Magnesium Sulfate 4 gm/Sodium Chloride 100 ml @ 50 mls/hr UNSCH PRN IV For Magnesium 0.9 - 1.1 mg/dL; Start 06/21/17 at 14:00 Magnesium Oxide (Mag-Ox) 800 mg UNSCH PRN PO For Magnesium 1.2 - 1.6 mg/dL; Start 06/21/17 at 14:00 Magnesium Sulfate 2 gm/Sodium Chloride 100 ml @ 50 mls/hr UNSCH PRN IV For Magnesium 1.2 - 1.6 mg/dL; Start 06/21/17 at 14:00 Potassium Phosphate (K-Phos) 2,000 mg Q4H PRN PO For Phosphorus < 2.5 mg/dL; Start 06/21/17 at 14:00 Sodium Phosphate 30 mmol/Sodium Chloride 250 ml @ 42 mls/hr UNSCH PRN IV For Phosphorus < 2.5 mg/dL; Start 06/21/17 at 14:00 Potassium Phosphate (K-Phos) 2,000 mg UNSCH PRN PO/TUBE SEE LABEL COMMENTS; Start 06/21/17 at 14:00 Potassium Phosphate 30 mmol/ Sodium Chloride 260 ml @ 42 mls/hr UNSCH PRN IV SEE LABEL COMMENTS; Start 06/21/17 at 14:00 Clonazepam (KlonoPIN) 0.5 mg BID PO Last administered on 06/22/17at 09:25; Start 06/22/17 at 09:00 Pantoprazole Sodium (Protonix) 20 mg DAILY PO Last administered on 06/22/17at 09 :25; Start 06/22/17 at 09:00 Attending Statement I again reviewed her clinical and radiological findings Head CT 06/21/17 1111 Signed mpressions: Service Date/Time: Wednesday, June 21, 2017 11:51 - CONCLUSION: 1. High density material, likely representing a small amount of subarachnoid blood products, in the left sylvian fissure. 2. Left posterior lateral scalp soft tissue swelling. No fracture is identified. Jack Camacho MD Hip and Pelvis X-Ray 06/21/17 0000 Signed Impressions: Service Date/Time: Wednesday, June 21, 2017 11:22 - CONCLUSION: 1. Mild degenerative change at the left hip. No acute findings. Dexter Varela MD Continue neuro checks in a serial fashion. A follow-up CTA and a CT of the head will be obtained. Non surgical management of TBI. Stable for transfer Pulmonary.aggressive pulmonary toilette, nasotracheal suction, and breathing treatments with nebulizers. Nutrition. Oral diet Renal. monitor closely urine output, BUN and creatinine Endocrine. Monitor serial Acu checks and SSI as needed in detail ID monitor for signs of infection Protonix for stress ulcer prophylaxis Ludwig jewelle and SCD's for DVT prophylaxis plan to discharge if CT stable Preet Day MD Jun 22, 2017 12:44
[2017-06-22] MEDS: ACETAMINOPHEN 325 MG TAB PO PRN ×3 (13:05→21:30)
--- NOTE | 2017-06-22 15:39 | HHI.PR ---
Subjective Remarks F/U [facility]. Denies PARADA or dizziness dw RN Objective Vitals Vital Signs Date Time Temp Pulse Resp B/P (MAP) Pulse Ox O2 Delivery O2 Flow Rate FiO2 06/22/17 12:00 74 06/22/17 12:00 98.2 74 19 111/60 (77) 100 06/22/17 10:41 97 21 06/22/17 10:00 84 06/22/17 08:00 70 06/22/17 08:00 98.3 70 16 98/58 (71) 97 06/22/17 07:00 Room Air 97 06/22/17 06:13 71 06/22/17 04:36 70 16 96/57 (70) 93 06/22/17 04:36 70 06/22/17 02:00 70 06/22/17 00:38 98.1 78 20 114/66 (82) 95 06/22/17 00:37 76 06/21/17 22:00 70 06/21/17 21:45 15 06/21/17 20:00 98.0 74 16 142/70 (94) 97 06/21/17 20:00 69 06/21/17 20:00 74 06/21/17 18:30 76 17 123/69 (87) 98 Nasal Cannula 2.00 06/21/17 18:25 18 06/21/17 17:00 75 16 112/67 (82) 97 Nasal Cannula 2.00 I/O 06/21/17 06/21/17 06/21/17 06/22/17 06/22/17 06/22/17 07:00 15:00 23:00 07:00 15:00 23:00 Intake Total 1480 ml Output Total 300 ml Balance -300 ml 1480 ml Intake Oral 480 ml IV Total 1000 ml Output Urine Total 300 ml # Voids 1 3 Result Diagram: 06/22/17 0357 06/22/17 0357 Imaging Last Impressions Head CT 06/21/17 1111 Signed Impressions: Service Date/Time: Wednesday, June 21, 2017 11:51 - CONCLUSION: 1. High density material, likely representing a small amount of subarachnoid blood products, in the left sylvian fissure. 2. Left posterior lateral scalp soft tissue swelling. No fracture is identified. Jack Camacho MD Hip and Pelvis X-Ray 06/21/17 0000 Signed Impressions: Service Date/Time: Wednesday, June 21, 2017 11:22 - CONCLUSION: 1. Mild degenerative change at the left hip. No acute findings. Dexter Varela MD Objective Remarks GENERAL: Well-nourished, well-developed patient. SKIN: Warm and dry. HEAD: Normocephalic. EYES: No scleral icterus. No injection or drainage. CARDIOVASCULAR: Regular rate and rhythm without murmurs, gallops, or rubs. RESPIRATORY: Breath sounds equal bilaterally. No accessory muscle use. GASTROINTESTINAL: Abdomen soft, non-tender, nondistended. MUSCULOSKELETAL: No cyanosis, or edema. BACK: Nontender without obvious deformity. NEURO EXAM: The patient is alert and oriented with normal speech. Procedures none A/P Problem List: (1) Traumatic subarachnoid hemorrhage ICD Code: S06.6X9A - Traumatic subarachnoid hemorrhage with loss of consciousness of unspecified duration, initial encounter Status: Acute Assessment and Plan Traumatic subarachnoid bleed. Stable - Repeat CT head in 24 hours stable - Neurosurgical consultations - Neuro checks per unit protocol - Supportive care - PT eval - fall precautions Paranoid schizophrenia - Continue home meds Dyslipidemia - Lipitor GERD - Omeprazole Hypothyroidism - Synthroid DVT GI prophylaxis - Teds SCDs - Pharmacological DVT prophylaxis due to subarachnoid bleed - Omeprazole Discharge Planning Transfer to floor then dc Problem Qualifiers (1) Traumatic subarachnoid hemorrhage: Qualified Codes: S06.6X0A - Traumatic subarachnoid hemorrhage without loss of consciousness, initial encounter Abdulkadir Molina MD Jun 22, 2017 15:39
[2017-06-22] MEDS ORDERED: IOHEXOL 350 MG/ML 10 ML VIAL (for RAD DIAG) IVCONTRAST ONE (18:43)
--- NOTE | 2017-06-22 18:48 | RADRPT ---
EXAM DATE/TIME: 06/22/2017 18:37 [facility] COMPARISON: CT BRAIN W/O CONTRAST, June 21, 2017, 11:51. INDICATIONS : Trauma, fall yesterday. Abnormal CT brain. RADIATION DOSE: 56.35 CTDIvol (mGy) MEDICAL HISTORY : Parkinson's. Hypertension. SURGICAL HISTORY : Hysterectomy. ENCOUNTER: Subsequent ACUITY: 1 day PAIN SCALE: Non-responsive LOCATION: Bilateral head TECHNIQUE: Multiple contiguous axial images were obtained of the head. Using automated exposure control and adj ustment of the mA and/or kV according to patient size, radiation dose was kept as low as reasonably a chievable to obtain optimal diagnostic quality images. DICOM format image data is available electro nically for review and comparison. FINDINGS: The study again demonstrates a trace amount of extra-axial hemorrhage in the sylvian fissure on the l eft. This is similar compared to the prior exam. No new areas of hemorrhage are seen. The ventricular system is normal in size and configuration. No mass lesion is identified. The sulci a nd gyri are otherwise intact. The appearance of the posterior fossa is unremarkable. The osseous structures of the skull are grossly intact. CONCLUSION: 1. There is a small amount of posttraumatic subarachnoid hemorrhage in the sylvian fissure on the lef t. This is somewhat less dense than seen on previous exam. No new areas of hemorrhage are present. Th ere is no mass effect. William Famrer MD on June 22, 2017 at 18:44 Board Certified Radiologist. This report was verified electronically.
--- NOTE | 2017-06-22 19:48 | RADRPT ---
EXAM DATE/TIME: 06/22/2017 18:40 [facility] COMPARISON: CT BRAIN W/O CONTRAST, June 22, 2017, 18:37. INDICATIONS : Trauma, fall yesterday. Abnormal CT brain. IV CONTRAST: 83 cc Omnipaque 350 (iohexol) IV ; Cumulative dose for multiple exams. RADIATION DOSE: 10.15 CTDIvol (mGy) ; Combined studies MEDICAL HISTORY : Parkinson's. Hypertension. SURGICAL HISTORY : Hysterectomy. ENCOUNTER: Subsequent ACUITY: 1 day PAIN SCALE: Non-responsive LOCATION: Bilateral neck Elevated flow velocities and ICA/CCA ratios have been found to correlate with increased degrees of vessel stenosis, calculated as percentage of diameter relative to a normal segment of distal ICA/CCA. TECHNIQUE: Volumetric scanning was performed using a multirow detector CT scanner. The data was post processed with a variety of visualization algorithms including full-volume maximum intensity projection, multip lanar sliding thin-slab reformation, curved-planar reformation, and surface-rendering techniques. Us ing automated exposure control and adjustment of the mA and/or kV according to patient size, radiatio n dose was kept as low as reasonably achievable to obtain optimal diagnostic quality images. DICOM f ormat image data is available electronically for review and comparison. FINDINGS: AORTIC ARCH: There is a three-vessel origin of the great vessels from the aorta. No evidence of ostial narrowing. RIGHT CAROTID: The common carotid artery is intact. The carotid bulb has a normal configuration without ulceration o r narrowing. The internal carotid artery lumen is smooth without stenosis. The external carotid gentry ry is intact. LEFT CAROTID: The common carotid artery is intact. The carotid bulb has a normal configuration without ulceration or narrowing. The internal carotid artery lumen is smooth without stenosis. The external carotid ar xiao is intact. VERTEBRALS: The vertebral arteries have a symmetric diameter. No stenotic lesions are seen. CONCLUSION: 1. The carotid and vertebral circulation is widely patent. 2. The limited portion of lung apex visualized demonstrates a 7 mm calcified granuloma in the anterio r aspect of the left upper lobe but are otherwise unremarkable. William Farmer MD on June 22, 2017 at 19:44 Board Certified Radiologist. This report was verified electronically.
--- NOTE | 2017-06-22 19:58 | RADRPT ---
EXAM DATE/TIME: 06/22/2017 18:40 [facility] COMPARISON: CT BRAIN W/O CONTRAST, June 22, 2017, 18:37. INDICATIONS : Trauma, fall yesterday. Abnormal CT brain. IV CONTRAST: 83 cc Omnipaque 350 (iohexol) IV ; Cumulative dose for multiple exams. RADIATION DOSE: 10.15 CTDIvol (mGy) ; Combined studies MEDICAL HISTORY : Parkinson's. Hypertension. SURGICAL HISTORY : Hysterectomy. ENCOUNTER: Subsequent ACUITY: 1 day PAIN SCALE: Non-responsive LOCATION: Bilateral head TECHNIQUE: Volumetric scanning was performed using a multi-row detector CT scanner. The data was post processed with a variety of visualization algorithms including full volume maximum intensity projection, multi -planar sliding thin slab reformation, curved planar reformation, and surface rendering techniques. Using automated exposure control and adjustment of the mA and/or kV according to patient size, radiat ion dose was kept as low as reasonably achievable to obtain optimal diagnostic quality images. DICO M format image data is available electronically for review and comparison. FINDINGS: There is excellent visualization of the major intracranial arteries out to the second-order branch ve ssels. There is no evidence for aneurysm, vessel truncation or stenosis, and no evidence for vascula r malformation. CONCLUSION: 1. Negative CT angiography of the brain. 2. The patient's known trace subarachnoid hemorrhage in the left sylvian fissures not visualized on t he postcontrast images.. William Farmer MD on June 22, 2017 at 19:54 Board Certified Radiologist. This report was verified electronically.
[2017-06-22] MEDS: ATORVASTATIN 10 MG TAB PO SCH (21:27)
[2017-06-23] VITALS (7 sets, daily range): BP systolic 97–151; BP diastolic 60–71; PULSE 76–84; RESP 18–26; TEMP 97.6–99; O2SAT 95–98
[2017-06-23] MEDS: RESP: ALBUTEROL 2.5 MG/IPRATROPIUM 0.5 MG NEB (SCH) INH ×4 (03:23→20:54)
[2017-06-23] MEDS: CHLORHEXIDINE GLUCONATE 2 % 1 PACK (2 CLOTHS) TOP SCH (04:00)
[2017-06-23] MEDS: LEVOTHYROXINE SODIUM 100 MCG TAB PO SCH (05:26)
[2017-06-23 07:09] LABS: AUTOMATED NEUTROPHIL # 5.1 TH/MM3 (1.8-7.7); BASOPHIL % 0.3 % (0.0-2.0); EOSINOPHIL # 0.2 TH/MM3 (0-0.4); EOSINOPHIL % 2.3 % (0.0-4.0); HEMATOCRIT 35.2 % (35.0-46.0); HEMOGLOBIN 12.1 GM/DL (11.6-15.3); LYMPH % 17.5 % (9.0-44.0); LYMPHOCYTE # 1.2 TH/MM3 (1.0-4.8); MEAN CELL VOLUME 86.5 FL (80.0-100.0); MEAN CORPUSCULAR HEMOGLOBIN 29.7 PG (27.0-34.0); MEAN CORPUSCULAR HGB CONC 34.3 % (32.0-36.0); MEAN PLATELET VOLUME 7.9 FL (7.0-11.0); MONOCYTE # 0.6 TH/MM3 (0-0.9); NEUT % 71.9 % (16.0-70.0); PLATELET COUNT 178 TH/MM3 (150-450); RED BLOOD COUNT 4.07 MIL/MM3 (4.00-5.30); RED CELL DISTRIBUTION WIDTH 13.9 % (11.6-17.2); WHITE BLOOD COUNT 7.1 TH/MM3 (4.0-11.0)
[2017-06-23 07:16] LABS: BICARBONATE 25.9 MEQ/L (21.0-32.0); CALCIUM 8.5 MG/DL (8.5-10.1); CREATININE 0.63 MG/DL (0.50-1.00); MAGNESIUM 2.2 MG/DL (1.5-2.5)
[2017-06-23] MEDS: DOCUSATE SODIUM 50 MG/SENNA 8.6 MG TAB PO SCH ×2 (08:57→20:54)
[2017-06-23] MEDS: clonazePAM 0.5 MG TAB PO SCH ×2 (08:57→20:54)
[2017-06-23] MEDS: PANTOPRAZOLE SOD 20 MG DELAYED RELEASE TAB PO SCH (08:57)
[2017-06-23] MEDS: ACETAMINOPHEN 325 MG TAB PO PRN (08:57)
[2017-06-23] MEDS: FAMOTIDINE 20 MG TAB PO SCH ×2 (08:57→20:54)
[2017-06-23] MEDS: ZIPRASIDONE HCL 20 MG CAP PO SCH (09:41)
[2017-06-23] MEDS: DIVALPROEX SODIUM E.R. 250 MG TAB PO SCH ×2 (09:41→20:54)
[2017-06-23] MEDS: UMECLIDINIUM 62.5 MCG/VILANTEROL 25 MCG INHALER INH SCH (09:41)
--- NOTE | 2017-06-23 12:30 | HHI.NSPN ---
Exam Results Vital Signs Date Time Temp Pulse Resp B/P (MAP) Pulse Ox O2 Delivery O2 Flow Rate FiO2 06/23/17 10:26 18 06/23/17 08:00 99.0 76 151/67 (95) 96 06/22/17 19:00 Blow By 06/22/17 10:41 21 06/21/17 18:30 2.00 Physical Examination ms Tay is alert and oriented to person, place, and time with normal speech. Cranial Nerves: Pupils are round, reactive to light. Extraocular movements are intact without ptosis. Hearing is normal bilaterally. Voice is normal. Tongue protrudes midline and moves symmetrically. Reflexes: Biceps, patellar, and Achilles are 2/4 bilaterally. No clonus. Sensation: Sensation is intact bilaterally to pain and light touch. Two-point discrimination is intact. Motor: Good muscle tone. Strength is 5/5 bilaterally. Cerebellar: Yzgozt-yf-hlll and uizi-he-ufco test normal bilaterally. SKIN: Warm and dry. HEAD: Normocephalic. EYES: No scleral icterus. No injection or drainage. NECK: Supple, trachea midline. No JVD or lymphadenopathy. CARDIOVASCULAR: Regular rate and rhythm without murmurs, gallops, or rubs. RESPIRATORY: Breath sounds equal bilaterally. No accessory muscle use. GASTROINTESTINAL: Abdomen soft, non-tender, nondistended. MUSCULOSKELETAL: No cyanosis, or edema. BACK: Nontender without obvious deformity. NEURO EXAM: GCS: 15 Lab, Micro, Other Results 06/22/17 CT and CTA images reviewed: Neck CTA 06/22/17 0000 Signed Impressions: Service Date/Time: Thursday, June 22, 2017 18:40 - CONCLUSION: 1. The carotid and vertebral circulation is widely patent. 2. The limited portion of lung apex visualized demonstrates a 7 mm calcified granuloma in the anterior aspect of the left upper lobe but are otherwise unremarkable. William Farmer MD Head CTA 06/22/17 0000 Signed Impressions: Service Date/Time: Thursday, June 22, 2017 18:40 - CONCLUSION: 1. Negative CT angiography of the brain. 2. The patient's known trace subarachnoid hemorrhage in the left sylvian fissures not visualized on the postcontrast images.. William Farmer MD Head CT 06/22/17 0000 Signed Impressions: Service Date/Time: Thursday, June 22, 2017 18:37 - CONCLUSION: 1. There is a small amount of posttraumatic subarachnoid hemorrhage in the sylvian fissure on the left. This is somewhat less dense than seen on previous exam. No new areas of hemorrhage are present. There is no mass effect. William Farmer MD Medical Decision Making Impression and Plan Impression: Stable neuro exam Ct head with minimal SAH CTA negative Plan: OK Discharge to SNF today F/U with NS Dr Day as needed Faustino aMssey MD Jun 23, 2017 12:30
--- NOTE | 2017-06-23 15:12 | HHI.PR ---
Subjective Remarks Follow-up subarachnoid hemorrhage. Patient denies headache or dizziness. Discussed with nursing Objective Vitals Vital Signs Date Time Temp Pulse Resp B/P (MAP) Pulse Ox O2 Delivery O2 Flow Rate FiO2 06/23/17 12:00 99.0 82 20 97/60 (72) 96 06/23/17 10:26 18 06/23/17 08:00 99.0 76 18 151/67 (95) 96 06/23/17 04:00 97.6 77 20 123/60 (81) 98 06/23/17 00:00 98.9 79 26 108/60 (76) 96 06/22/17 20:56 100 06/22/17 20:00 63 06/22/17 20:00 99.2 79 21 108/69 (82) 99 06/22/17 19:00 100 Blow By 06/22/17 16:00 98.1 75 19 107/63 (78) 100 06/22/17 16:00 75 I/O 06/22/17 06/22/17 06/22/17 06/23/17 06/23/17 06/23/17 07:00 15:00 23:00 07:00 15:00 23:00 Intake Total 1480 ml 1000 ml 480 ml Output Total 200 ml Balance 1480 ml 1000 ml 280 ml Intake Oral 480 ml 480 ml IV Total 1000 ml 1000 ml Output Urine Total 200 ml # Voids 3 5 # Bowel Movements 0 Result Diagram: 06/23/17 0539 06/23/17 0539 Imaging Last Impressions Neck CTA 06/22/17 0000 Signed Impressions: Service Date/Time: Thursday, June 22, 2017 18:40 - CONCLUSION: 1. The carotid and vertebral circulation is widely patent. 2. The limited portion of lung apex visualized demonstrates a 7 mm calcified granuloma in the anterior aspect of the left upper lobe but are otherwise unremarkable. William Farmer MD Head CTA 06/22/17 0000 Signed Impressions: Service Date/Time: Thursday, June 22, 2017 18:40 - CONCLUSION: 1. Negative CT angiography of the brain. 2. The patient's known trace subarachnoid hemorrhage in the left sylvian fissures not visualized on the postcontrast images.. William Farmer MD Head CT 06/22/17 0000 Signed Impressions: Service Date/Time: Thursday, June 22, 2017 18:37 - CONCLUSION: 1. There is a small amount of posttraumatic subarachnoid hemorrhage in the sylvian fissure on the left. This is somewhat less dense than seen on previous exam. No new areas of hemorrhage are present. There is no mass effect. William Farmer MD Hip and Pelvis X-Ray 06/21/17 0000 Signed Impressions: Service Date/Time: Wednesday, June 21, 2017 11:22 - CONCLUSION: 1. Mild degenerative change at the left hip. No acute findings. Dexter Varela MD Objective Remarks GENERAL: Well-nourished, well-developed patient. SKIN: Warm and dry. CARDIOVASCULAR: Regular rate and rhythm without murmurs, gallops, or rubs. RESPIRATORY: Breath sounds equal bilaterally. No accessory muscle use. GASTROINTESTINAL: Abdomen soft, non-tender, nondistended. MUSCULOSKELETAL: No cyanosis, or edema. BACK: Nontender without obvious deformity. NEURO EXAM: The patient is alert and oriented with normal speech. Procedures none A/P Problem List: (1) Traumatic subarachnoid hemorrhage ICD Code: S06.6X9A - Traumatic subarachnoid hemorrhage with loss of consciousness of unspecified duration, initial encounter Status: Acute Assessment and Plan Traumatic subarachnoid bleed. Stable - Repeat CT head in 24 hours stable - Neurosurgical consultations - Neuro checks per unit protocol - Supportive care - PT recommends rehab - fall precautions Paranoid schizophrenia - Continue home meds Dyslipidemia - Lipitor GERD - Omeprazole Hypothyroidism - Synthroid DVT GI prophylaxis - Teds SCDs - Pharmacological DVT prophylaxis due to subarachnoid bleed - Omeprazole Discharge Planning Discharge to rehab in the Problem Qualifiers (1) Traumatic subarachnoid hemorrhage: Qualified Codes: S06.6X0A - Traumatic subarachnoid hemorrhage without loss of consciousness, initial encounter Abdulkadir Molina MD Jun 23, 2017 15:12
[2017-06-23] MEDS ORDERED: CLON0.5T PO (15:15)
[2017-06-23] MEDS ORDERED: POTASSIUM CHLORIDE 10 MEQ CONTROLLED RELEASE TAB PO ONE (15:15)
--- NOTE | 2017-06-23 15:15 | HHI.DCPOC ---
Discharge Care Plan Diagnosis: (1) Traumatic subarachnoid hemorrhage Your Health Problems Are: Difficulty with ADL Exercise Tolerance Goals to Promote Your Health * To prevent worsening of your condition and complications * To maintain your health at the optimal level Directions to Meet Your Goals Take your medications as prescribed Follow your dietary instruction Follow activity as directed Keep your appointments as scheduled Take your immunizations and boosters as scheduled If your symptoms worsen call your PCP, if no PCP go to Urgent Care Center or Emergency Room Smoking is Dangerous to Your Health. Avoid second hand smoke Call the 24-hour hour crisis hotline for domestic abuse at Abdulkadir Molina MD Jun 23, 2017 15:15
[2017-06-23] MEDS: ATORVASTATIN 10 MG TAB PO SCH (20:54)
[2017-06-24] VITALS: BP 113/73; PULSE 77; RESP 19; TEMP 98.7; O2SAT 92
[2017-06-24] MEDS: RESP: ALBUTEROL 2.5 MG/IPRATROPIUM 0.5 MG NEB (SCH) INH ×2 (03:07→08:05)
[2017-06-24 03:35] VITALS: BP 94/52; PULSE 83; RESP 20; TEMP 98.5; O2SAT 93
[2017-06-24] MEDS: CHLORHEXIDINE GLUCONATE 2 % 1 PACK (2 CLOTHS) TOP SCH (04:00)
[2017-06-24] MEDS: LEVOTHYROXINE SODIUM 100 MCG TAB PO SCH (04:56)
[2017-06-24 08:00] VITALS: BP 109/62; PULSE 76; PULSE 77; RESP 19; TEMP 78; O2SAT 92
[2017-06-24] MEDS: DOCUSATE SODIUM 50 MG/SENNA 8.6 MG TAB PO SCH (08:24)
[2017-06-24] MEDS: ZIPRASIDONE HCL 20 MG CAP PO SCH (08:24)
[2017-06-24] MEDS: ACETAMINOPHEN 325 MG TAB PO PRN (08:24)
[2017-06-24] MEDS: UMECLIDINIUM 62.5 MCG/VILANTEROL 25 MCG INHALER INH SCH (08:24)
[2017-06-24] MEDS: DIVALPROEX SODIUM E.R. 250 MG TAB PO SCH (08:24)
[2017-06-24] MEDS: FAMOTIDINE 20 MG TAB PO SCH (08:24)
[2017-06-24] MEDS: clonazePAM 0.5 MG TAB PO SCH (08:24)
--- NOTE | 2017-06-24 10:07 | HHI.PR ---
Subjective Remarks Follow-up subarachnoid hemorrhage. Denies headache or dizziness. States she had a bowel movement. Discussed with nursing Objective Vitals Vital Signs Date Time Temp Pulse Resp B/P (MAP) Pulse Ox O2 Delivery O2 Flow Rate FiO2 06/24/17 08:00 78.0 76 19 109/62 (78) 92 06/24/17 03:35 98.5 83 20 94/52 (66) 93 06/24/17 00:00 98.7 77 19 113/73 (86) 92 06/23/17 20:54 96 21 06/23/17 20:00 82 06/23/17 20:00 98.5 84 19 119/69 (86) 97 06/23/17 19:00 98 Room Air 06/23/17 16:00 98.2 82 18 121/71 (88) 95 06/23/17 12:00 99.0 82 20 97/60 (72) 96 06/23/17 10:26 18 I/O 06/23/17 06/23/17 06/23/17 06/24/17 06/24/17 06/24/17 07:00 15:00 23:00 07:00 15:00 23:00 Intake Total 600 ml Output Total 50 ml Balance 600 ml -50 ml Intake Oral 600 ml Output Urine Total 50 ml # Voids 5 # Bowel Movements 1 Result Diagram: 06/23/17 0539 06/23/17 0539 Imaging Last Impressions Neck CTA 06/22/17 0000 Signed Impressions: Service Date/Time: Thursday, June 22, 2017 18:40 - CONCLUSION: 1. The carotid and vertebral circulation is widely patent. 2. The limited portion of lung apex visualized demonstrates a 7 mm calcified granuloma in the anterior aspect of the left upper lobe but are otherwise unremarkable. William Farmer MD Head CTA 06/22/17 0000 Signed Impressions: Service Date/Time: Thursday, June 22, 2017 18:40 - CONCLUSION: 1. Negative CT angiography of the brain. 2. The patient's known trace subarachnoid hemorrhage in the left sylvian fissures not visualized on the postcontrast images.. William Farmer MD Head CT 06/22/17 0000 Signed Impressions: Service Date/Time: Thursday, June 22, 2017 18:37 - CONCLUSION: 1. There is a small amount of posttraumatic subarachnoid hemorrhage in the sylvian fissure on the left. This is somewhat less dense than seen on previous exam. No new areas of hemorrhage are present. There is no mass effect. William Farmer MD Hip and Pelvis X-Ray 06/21/17 0000 Signed Impressions: Service Date/Time: Wednesday, June 21, 2017 11:22 - CONCLUSION: 1. Mild degenerative change at the left hip. No acute findings. Dexter Varela MD Objective Remarks GENERAL: Well-nourished, well-developed patient. SKIN: Warm and dry. CARDIOVASCULAR: Regular rate and rhythm without murmurs, gallops, or rubs. RESPIRATORY: Breath sounds equal bilaterally. No accessory muscle use. GASTROINTESTINAL: Abdomen soft, non-tender, nondistended. MUSCULOSKELETAL: No cyanosis, or edema. BACK: Nontender without obvious deformity. NEURO EXAM: The patient is alert and oriented with normal speech. Procedures none A/P Problem List: (1) Traumatic subarachnoid hemorrhage ICD Code: S06.6X9A - Traumatic subarachnoid hemorrhage with loss of consciousness of unspecified duration, initial encounter Status: Acute Assessment and Plan Traumatic subarachnoid bleed. Neurologically intact with stable repeat head CT. Patient was evaluated by neurosurgery and cleared for discharge. Continue neuro checks and supportive care. Physical therapy has recommended rehabilitation. Fall precautions. Paranoid schizophrenia. Stable continue home medication Dyslipidemia stable on Lipitor GERD. Symptomatic continue omeprazole Hypothyroidism. Stable Synthroid DVT GI prophylaxis - Teds SCDs - Pharmacological DVT prophylaxis due to subarachnoid bleed - Omeprazole Discharge Planning Discharge to rehab when arranged Problem Qualifiers (1) Traumatic subarachnoid hemorrhage: Qualified Codes: S06.6X0A - Traumatic subarachnoid hemorrhage without loss of consciousness, initial encounter Abdulkadir Molina MD Jun 24, 2017 10:07
[2017-06-24 12:00] VITALS: BP 101/65; PULSE 75; RESP 18; TEMP 98.4; O2SAT 95
--- NOTE | 2017-06-24 12:35 | HHI.DS ---
Discharge Summary Admission Date Jun 21, 2017 at 13:22 Discharge Date: Jun 24, 2017 Admitting Diagnosis traumatic subarachnoid hemorrhage (1) Traumatic subarachnoid hemorrhage ICD Code: S06.6X9A - Traumatic subarachnoid hemorrhage with loss of consciousness of unspecified duration, initial encounter Diagnosis: Principal Status: Acute Procedures none Brief History - From Admission 67-year-old female had a trip and fall and hit the back of her head. After this she had an episode of nonbloody emesis. She states she also hurts to her left upper hip after the fall. She denies any other complaints. She states the main area that is bothering her is her head. She states she doesn't take blood thinners but she is unsure and is an overall poor historian. She is mostly worried about losing her vision because she saw on TV that the vision center of the brain is in the back of the head. The CT of the head shows small tiny traumatic subarachnoid bleed. CBC/BMP: 06/23/17 0539 06/23/17 0539 Significant Findings Laboratory Tests Test 06/21/17 20:36 06/22/17 03:57 06/23/17 05:39 Red Blood Count 3.81 MIL/MM3 (4.00-5.30) Hemoglobin 11.5 GM/DL (11.6-15.3) Hematocrit 32.8 % (35.0-46.0) Total Protein 6.3 GM/DL (6.4-8.2) Albumin 3.2 GM/DL (3.4-5.0) Calcium Level 8.4 MG/DL (8.5-10.1) Valproic Acid (Depakene) Level 29 MCG/ML (50-100) Neutrophils (%) (Auto) 71.9 % (16.0-70.0) Potassium Level 3.4 MEQ/L (3.5-5.1) Imaging Last Impressions Neck CTA 06/22/17 0000 Signed Impressions: Service Date/Time: Thursday, June 22, 2017 18:40 - CONCLUSION: 1. The carotid and vertebral circulation is widely patent. 2. The limited portion of lung apex visualized demonstrates a 7 mm calcified granuloma in the anterior aspect of the left upper lobe but are otherwise unremarkable. William Farmer MD Head CTA 06/22/17 0000 Signed Impressions: Service Date/Time: Thursday, June 22, 2017 18:40 - CONCLUSION: 1. Negative CT angiography of the brain. 2. The patient's known trace subarachnoid hemorrhage in the left sylvian fissures not visualized on the postcontrast images.. William Farmer MD Head CT 06/22/17 0000 Signed Impressions: Service Date/Time: Thursday, June 22, 2017 18:37 - CONCLUSION: 1. There is a small amount of posttraumatic subarachnoid hemorrhage in the sylvian fissure on the left. This is somewhat less dense than seen on previous exam. No new areas of hemorrhage are present. There is no mass effect. William Farmer MD Hip and Pelvis X-Ray 06/21/17 0000 Signed Impressions: Service Date/Time: Wednesday, June 21, 2017 11:22 - CONCLUSION: 1. Mild degenerative change at the left hip. No acute findings. Dexter Varela MD PE at Discharge GENERAL: Well-nourished, well-developed patient. SKIN: Warm and dry. CARDIOVASCULAR: Regular rate and rhythm without murmurs, gallops, or rubs. RESPIRATORY: Breath sounds equal bilaterally. No accessory muscle use. GASTROINTESTINAL: Abdomen soft, non-tender, nondistended. MUSCULOSKELETAL: No cyanosis, or edema. BACK: Nontender without obvious deformity. NEURO EXAM: The patient is alert and oriented with normal speech. Hospital Course Traumatic subarachnoid bleed. Neurologically intact with stable repeat head CT. Patient was evaluated by neurosurgery and cleared for discharge. Continue neuro checks and supportive care. Physical therapy has recommended rehabilitation. Fall precautions. Paranoid schizophrenia. Stable continue home medication Dyslipidemia stable on Lipitor GERD. Symptomatic continue omeprazole Hypothyroidism. Stable Synthroid DVT GI prophylaxis - Teds SCDs - Pharmacological DVT prophylaxis due to subarachnoid bleed - Omeprazole Pt Condition on Discharge: Stable Discharge Disposition: Discharge to SNF Discharge Time: > 30 minutes Discharge Instructions DIET: Follow Instructions for: Heart Healthy Diet Activities you can perform: Regular-No Restrictions Activities to Avoid: Driving Follow up Referrals: Neurosurgery - 1 Week PCP Follow-up - 1 Week Psychiatry Adult - 1 Week SNF/[facility]/ with [facility] Continued Medications: Atorvastatin (Lipitor) 10 Mg Tab 10 MG PO HS for Cholesterol Management, #30 TAB 0 Refills Calcium Carbonate-Vitamin D (Super Calcium 600+D 400) 600-400 Mg-Unit Tab 1 TAB PO BID for Calcium Supplement, TAB 0 Refills Clonazepam (Clonazepam) 0.5 Mg Tab 0.5 MG PO BID for Control Anxiety, #6 TAB 0 Refills (This prescription has been renewed) Divalproex ER (Depakote ER) 250 Mg Nahed 250 MG PO BID for Control Seizures, #30 TAB 0 Refills Levothyroxine (Synthroid) 100 Mcg Tab 100 MCG PO DAILY for Thyroid, #30 TAB 0 Refills Omeprazole (Omeprazole) 20 Mg Tab 20 MG PO DAILY, #30 TAB 0 Refills Polyvinyl Alcohol Opth Drops (Artificial Tears Opth Drops) 1.4% Soln 1-2 DROP EACH EYE PRN PRN for DRY EYE, BOTTLE 0 Refills Umeclidinium-Vilanterol Inh (Anoro Ellipta Inh) 62.5-25 Mcg/Act Aero 1 PUFF INH DAILY for COPD, #1 INHALER 0 Refills Ziprasidone (Geodon) 20 Mg Cap 20 MG PO DAILY, #60 CAP 0 Refills Discontinued Medications: Aspirin DR (Aspirin 81) 81 Mg Tabdr 81 MG PO DAILY, TAB 0 Refills Clonazepam (Klonopin) 0.5 Mg Tab 0.5 MG PO TID, #90 TAB 0 Refills Meloxicam (Meloxicam) 15 Mg Tab 15 MG PO DAILY, #30 TAB 0 Refills Abdulkadir Molina MD Jun 24, 2017 12:35
[2017-06-24 12:39] VITALS: PULSE 76
== END 2017-06-24 14:50 | DRG 86 ==
LOC: PHED 10:56 → PHEDA 13:22 → N03A 18:54 → N03B 06-22 19:10
PROVIDERS: ADMIT Internal Medicine; ATTEND Internal Medicine
DX: S06.6X0A Traumatic subarachnoid hemorrhage without loss of consciousness, initial encounter (principal); F20.0 Paranoid schizophrenia; G20 Parkinson's disease; I10 Essential (primary) hypertension; E78.5 Hyperlipidemia, unspecified; E03.9 Hypothyroidism, unspecified; K21.9 Gastro-esophageal reflux disease without esophagitis; F32.9 Major depressive disorder, single episode, unspecified; F41.9 Anxiety disorder, unspecified; F17.210 Nicotine dependence, cigarettes, uncomplicated; W01.0XXA Fall on same level from slipping, tripping and stumbling without subsequent striking against object, initial encounter
CPT/HCPCS: 70450; 70496; 70498; 73502; 80048; 80053; 80164; 83735; 84100; 85025; 85610; 85730; 87641; 94640; 94664; 99285; J2270; J2405; J7030; Q9967